=== PATIENT | female | born 1990 | race Caucasian/White ===

== ENCOUNTER 2017-06-07 17:09 | Emergency (ER) | payer OTHER ==
[~2017-06-07] VITALS: Ht 167.6 cm; Wt 79.5 kg
[~2017-06-07 17:09] MED LIST: AUGMENTIN875 MG PO; MACROBID100 MG PO; METHADONE HCL40 MG PO; MOTRIN600 MG PO; Motrin PO; NAPROSYN500 MG PO; NATALCARE RX1 TABLET PO; NOHOMEMEDS; PREDNISONE20 MG PO; PROMETHAZINE HC25 M1 PO; Percocet 5/325,Endoc PO; TRAMADOL HCL50 MG PO; ZITHROMAX500 MG PO; ZOFRAN ODT4 MG PO
[2017-06-07] MEDS ORDERED: AZITHROMYCIN250 MG PO (17:28)
[2017-06-07] MEDS ORDERED: GUAIFEN-CODEINE10 ML PO (17:28)
[2017-06-07 17:39] VITALS: BP 143/89
== END 2017-06-07 17:39 | disposition home or self-care (01) ==
LOC: EME 17:09
DX: J40 Bronchitis, not specified as acute or chronic (principal); F17.200 Nicotine dependence, unspecified, uncomplicated; Z88.0 Allergy status to penicillin; Z91.040 Latex allergy status
CPT/HCPCS: 99281; 99284

== ENCOUNTER 2017-08-02 11:21 | Emergency (ER) | payer OTHER ==
[~2017-08-02] VITALS: Ht 167.6 cm; Wt 82.4 kg
[~2017-08-02 11:21] MED LIST changes: +AZITHROMYCIN250 MG PO; +GUAIFEN-CODEINE10 ML PO
[2017-08-02] MEDS ORDERED: CLEOCIN300 MG PO (15:28)
[2017-08-02 15:38] VITALS: BP 128/62
== END 2017-08-02 15:43 | disposition home or self-care (01) ==
LOC: EME 11:21
DX: K04.7 Periapical abscess without sinus (principal); F17.200 Nicotine dependence, unspecified, uncomplicated; Z88.0 Allergy status to penicillin; Z91.040 Latex allergy status
CPT/HCPCS: 99281; 99284

== ENCOUNTER 2018-03-13 18:54 | Emergency (ER) | payer OTHER ==
[~2018-03-13] VITALS: Ht 167.6 cm; Wt 74.9 kg
[~2018-03-13 18:54] MED LIST changes: +CLEOCIN300 MG PO
[2018-03-13 19:31] LABS: HEMATOCRIT 40.2 % (36.0-46.0); HEMOGLOBIN 13.6 G/DL (11.9-15.5); MCH 29.6 PG (29.0-34.0); MCHC 33.8 G/DL (30.0-36.0); MCV 87.6 FL (83-99); PLATELET COUNT 283 K/uL (156-360); RBC DIS.WIDTH-CV 12.2 % (11.8-14.6); RBC DIS.WIDTH-SD 38.6 % (39-53); RED BLOOD COUNT 4.59 M/uL (3.80-5.20); WHITE BLOOD COUNT 8.1 K/uL (4.1-10.2)
[2018-03-13 19:39] LABS: CHLORIDE 107 mEq/L (99-109); POTASSIUM 3.7 mEq/L (3.7-5.4); SODIUM 141 mEq/L (136-147)
[2018-03-13 19:41] LABS: GLUCOSE 94 mg/dL (70-99)
[2018-03-13 19:45] LABS: CREATININE 0.8 mg/dL (0.6-1.3); GFR ESTIMATE (CALCULATED) > 59 mL/min/
[2018-03-13 19:46] LABS: UREA NITROGEN (BUN) 8 mg/dL (9-23)
[2018-03-13] MEDS ORDERED: PROVENTIL HFA6.7 GM IH (20:23)
[2018-03-13] MEDS ORDERED: GUAIFENESIN600 M1 PO (20:23)
[2018-03-13] MEDS ORDERED: TESSALON200 MG PO (20:23)
[2018-03-13] MEDS ORDERED: ROBITUSSIN NIG237 ML PO (20:23)
[2018-03-13 20:46] VITALS: BP 116/82
== END 2018-03-13 20:47 | disposition home or self-care (01) ==
LOC: EME 18:54
DX: B34.9 Viral infection, unspecified (principal); R10.84 Generalized abdominal pain; F17.200 Nicotine dependence, unspecified, uncomplicated; Z71.6 Tobacco abuse counseling; F11.20 Opioid dependence, uncomplicated; Z88.0 Allergy status to penicillin; Z91.040 Latex allergy status
CPT/HCPCS: 71046; 80048; 85027; 87502; 93005; 99281; 99284; J1885